=== PATIENT | female | born 1970 | race Caucasian/White ===

== ENCOUNTER 2016-12-20 18:53 | Emergency (ER) | payer OTHER ==
[~2016-12-20] VITALS: Ht 162.6 cm; Wt 127.0 kg
--- NOTE | 2016-12-20 19:14 | NUR ---
Dr. Santana at bedside for eval.
[2016-12-20] MEDS: IBUPROFEN 800 MG TABLET PO ONE (19:30)
[2016-12-20] MEDS ORDERED: IBUPROFEN 800 MG TABLET ONE (19:40)
[2016-12-20 19:52] LABS: *BILIRUBIN,URIN NEGATIVE (NEGATIVE); *BLOOD, URINE Trace-intact (NEGATIVE); *CLARITY,URINE CLEAR (CLEAR); *COLOR,URINE YELLOW (YELLOW); *KETONES,URINE NEGATIVE (NEGATIVE); *PROTEIN,URINE NEGATIVE (NEGATIVE); *UROBILINOGEN,URINE 0.2 E.U./dl (NORMAL); LEUKOCYTE ESTERASE ,URINE NEGATIVE (NEGATIVE); NITRITE, URINE NEGATIVE (NEGATIVE); PH,URINE 5.5 (5.0-8.0); UGLUCOSE NEGATIVE (NEGATIVE)
[2016-12-20 19:58] LABS: BASOPHILS # (AUTO) 0.1 K/uL (0.0-8.0); BASOPHILS % (AUTO) 0.8 % (0.0-2.0); EOSINOPHILS # (AUTO) 0.1 K/uL (0.0-0.7); EOSINOPHILS % (AUTO) 0.9 % (0.0-7.0); HEMATOCRIT 38.4 % (37-47); HEMOGLOBIN 12.8 G/DL (12.0-16.0); LYMPHOCYTES # (AUTO) 3.7 K/UL (0.8-4.8); LYMPHOCYTES % (AUTO) 41.9 % (20.5-51.5); MEAN CORPUSCULAR HGB CONC 33 g/dL (32.0-37.0); MEAN CORPUSCULAR VOLUME 81.4 FL (81.0-99.0); MONOCYTES # (AUTO) 0.4 K/UL (0.1-1.30); NEUTROPHILS # (AUTO) 4.6 K/UL (1.8-8.9); NEUTROPHILS % (AUTO) 52.4 % (38.5-71.5); PLATELET COUNT (AUTO) 272 K/UL (150-450); RED BLOOD CELL COUNT(AUTO) 4.72 MIL/UL (4.2-5.4); WHITE BLOOD COUNT (AUTO) 8.9 K/UL (4.0-11.2)
[2016-12-20 20:13] LABS: CREATININE 0.9 mg/dL (0.6-1.3); POTASSIUM 3.3 mmol/L (3.5-5.1)
[2016-12-20 20:17] LABS: BILIRUBIN,DIRECT 0.1 mg/dL (0.0-0.2); BILIRUBIN,TOTAL 0.2 mg/dL (0.2-1.0); TOTAL PROTEIN, SERUM 6.8 g/dL (6.4-8.2)
[2016-12-20 20:20] LABS: BACTERIA,URINE FEW /HPF (NONE SEEN); MUCUS,URINE FEW /LPF (0-FEW); SQUAMOUS EPITHELIAL CELL,UR MODERATE /HPF (NONE SEEN)
[2016-12-20] MEDS: IV NORMAL SALINE 1000 ML BAG IV ONE (21:19)
--- NOTE | 2016-12-20 21:24 | NUR ---
Patient does not want to take [place] at this time, MD aware.
[2016-12-20] MEDS: HYDROCODONE/APAP 5-325MG TABLET PO ONE (21:32)
[2016-12-20] MEDS ORDERED: HYDROCODONE/APAP 5-325MG TABLET ONE (21:33)
[2016-12-20] MEDS ORDERED: NORMAL SALINE FLUSH 10 ML DISP.SYRIN ONE (22:35)
[2016-12-20] MEDS ORDERED: IV NORMAL SALINE 250 ML IV ONE (22:36)
[2016-12-20] MEDS ORDERED: IOHEXOL 350 100 ML INFUS..BTL ONE (22:36)
[2016-12-21 00:26] VITALS: BP 130/65
--- NOTE | 2016-12-21 00:26 | NUR ---
Patient discharged to home in stable conditon. Written and verbal after care instructions given. Patient verbalizes understanding of instructions.
== END 2016-12-21 00:28 | disposition home or self-care (01) ==
LOC: ER 18:53
DX: S13.4XXA Sprain of ligaments of cervical spine, initial encounter (principal); S39.012A Strain of muscle, fascia and tendon of lower back, initial encounter; S20.219A Contusion of unspecified front wall of thorax, initial encounter; R07.89 Other chest pain; I51.7 Cardiomegaly; V89.2XXA Person injured in unspecified motor-vehicle accident, traffic, initial encounter; Y93.89 Activity, other specified; Y92.89 Other specified places as the place of occurrence of the external cause; Y99.8 Other external cause status
CPT/HCPCS: 36415; 70030-TC; 71010; 71275; 72125; 72131; 84703; 85025; 85730; 93005; A4663; J3490; J7030; J7050; Q9967